=== PATIENT | female | born 1965 | race Caucasian/White ===

== ENCOUNTER 2020-04-29 05:51 | Day surgery (SDC) | payer MEDICAID ==
[2020-04-22 16:38] LABS: ALBUMIN 3.6 G/DL (3.4-5.0); ALBUMIN/GLOBULIN RATIO 0.9 (1.1-1.5); ALKALINE PHOSPHATASE 89 IU/L (46-116); BLOOD UREA NITROGEN 17 MG/DL (7-18); BUN/CREATININE RATIO 13.8 (6.6-38.0); CHLORIDE 102 MMOL/L (99-107); CREATININE 1.23 MG/DL (0.40-0.90); PRE OP ALT 41 U/L (30-65); PRE OP ANION GAP 12 (8-16); PRE OP AST 33 U/L (10-37); PRE OP BILIRUB, TOTAL 0.2 MG/DL (0.0-1.0); PRE OP GLUCOSE 115 MG/DL (70-104); PRE OP POTASSIUM 3.4 MMOL/L (3.4-5.1); PRE OP SODIUM 139 MMOL/L (135-145); TOTAL CARBON DIOXIDE 24.9 MMOL/L (24-32); TOTAL PROTEIN 7.6 G/DL (6.4-8.2); eGFR 46 ML/MIN
[2020-04-22 16:48] LABS: BASOPHILS # (AUTO) 0.2 X10'3 (0-0.2); BASOPHILS % (AUTO) 1.4 % (0-1); EOSINOPHILS # (AUTO) 0.2 X10'3 (0-0.9); EOSINOPHILS % (AUTO) 1.7 % (0-6); LYMPHOCYTES # (AUTO) 3.4 X10'3 (1.1-4.8); LYMPHOCYTES % (AUTO) 31.2 % (21-51); MEAN CORPUSCULAR HEMOGLOBIN 28.7 PG (27.0-31.0); MEAN CORPUSCULAR HGB CONC 33.7 g/dL (33.0-36.5); MEAN CORPUSCULAR VOLUME 85.3 FL (78-98); MEAN PLATELET VOLUME 8.3 FL (7.4-10.4); MONOCYTES # (AUTO) 0.5 X10'3 (0-0.9); MONOCYTES % (AUTO) 4.9 % (2-12); NEUTROPHILS # (AUTO) 6.6 X10'3 (1.8-7.7); NEUTROPHILS % (AUTO) 60.8 % (42-75); PRE OP HEMATOCRIT 39.3 % (35.0-45.0); PRE OP HEMOGLOBIN 13.2 g/dL (12.0-16.0); PRE OP PLATELET COUNT 331 X10'3 (140-440); RED CELL DISTRIBUTION WIDTH 15.1 % (11.5-14.5)
[~2020-04-29] VITALS: Ht 157.5 cm; Wt 113.4 kg
[~2020-04-29 05:51] MED LIST: BREX2TAB PO; BUSP15TA3 PO; CITA40TA16 PO; CLON-330 PO; CYCL-1 PO; DEXT20CA4 PO; DIPH25CA83 PO; ENAL20TA PO; FAMO20TA8 PO; FLUT16SP2 BOTHNARES; HYDR-3927 PO; HYDR-3973 PO; HYDR25TA4 PO; LEVO112T5 PO; METF-900 PO; SIMV-42 PO; ZOLP10TA PO; ceFAZolin 2gm in dextrose, iso 50 ML IV ONE; famotidine 20mg tablet PO ONE; ringers solution, lacted 1,000 ML IV SCH
[2020-04-29 06:05] VITALS: BP 103/57
[2020-04-29] MEDS ORDERED: LIDOcaine 1% 30ml preserv. free vial ONE (07:22)
[2020-04-29] MEDS ORDERED: meperidine/PF 25mg/ml syringe IV PRN ×3 (07:55)
[2020-04-29] MEDS ORDERED: morphine 2 MG/ML inj. syringe IV PRN (07:55)
[2020-04-29] MEDS ORDERED: ondansetron/PF 4mg/2ml inj IV PRN (07:55)
[2020-04-29] MEDS ORDERED: ringers solution, lacted 1,000 ML IV SCH (07:55)
[2020-04-29] MEDS ORDERED: proCHLORperazine 10 MG/2 ml inj IV PRN (07:55)
[2020-04-29] MEDS ORDERED: morphine 4 MG/ML inj SYRINge IV PRN (07:55)
[2020-04-29] MEDS ORDERED: BUPIVAcaine/PF 2.5mg/ml (0.25%) 10ml vial ONE (08:10)
[2020-04-29] MEDS ORDERED: MIDAZolam 5mg/5ml vial ONE (08:42)
[2020-04-29] MEDS ORDERED: fentaNYL/PF 50MCG/1 ML 2ML syringe ONE (08:42)
[2020-04-29] MEDS ORDERED: ketorolac trometh. 30mg/ml inj. ONE (08:56)
[2020-04-29 09:04] VITALS: BP 124/70
--- NOTE | 2020-04-29 09:04 | NUR ---
RECEIVED FROM OR VIA [facility] ACCOMPANIED BY ANESTHESIOLOGIST DR SCHWARTZ, REPORT GIVEN. PT DROWSY BUT AWAKENS EASILY AND DENIES PAIN AT THIS TIME. R WRIST DRESSING CDI WITH GOOD CAP REFILL, SKIN PINK AND WARM. 20 GAUGE PIV L A/C PATENT AND RUNNING LR AT 100 ML/HR.RUE ELEVATED AND ICE APPLIED, RESTING COMFORTABLY.
[2020-04-29 09:10] VITALS: BP 120/72
[2020-04-29 09:20] VITALS: BP 114/70
[2020-04-29 09:30] VITALS: BP 118/70
[2020-04-29 09:40] VITALS: BP 122/72
--- NOTE | 2020-04-29 09:44 | NUR ---
TRANSFERRED VIA WHEELCHAIR ACCOMPANIED BY MY SELF TO MOTHER IN PRIVATE VEHICLE TO HOME.. PT AWAKE AND ALERT, TOLERATING FLUIDS, DRESSES SELF, AMBULATES, DISCHARGE INSTRUCTIONS GIVENAND PT VERBALIZES UNDERSTANDING.. R WRIST DRESSING CDI WITH GOOD CAP REFILL, SKIN PINK AND WARM. 20 GAUGE PIV L A/C DC/D CATH TIP INTACT.
== END 2020-04-29 09:44 | disposition home or self-care (01) ==
LOC: PAS 05:51
PROVIDERS: ATTEND Orthopaedic Surgery Hand Surgery
DX: G56.01 Carpal tunnel syndrome, right upper limb (principal); M17.0 Bilateral primary osteoarthritis of knee; E11.9 Type 2 diabetes mellitus without complications; E78.00 Pure hypercholesterolemia, unspecified; I11.9 Hypertensive heart disease without heart failure; E03.9 Hypothyroidism, unspecified; M18.0 Bilateral primary osteoarthritis of first carpometacarpal joints; J43.9 Emphysema, unspecified; K21.9 Gastro-esophageal reflux disease without esophagitis; F17.210 Nicotine dependence, cigarettes, uncomplicated; E66.01 Morbid (severe) obesity due to excess calories; Z68.41 Body mass index [BMI] 40.0-44.9, adult; Z79.899 Other long term (current) drug therapy; Z11.59 Encounter for screening for other viral diseases; Z88.5 Allergy status to narcotic agent; Z79.84 Long term (current) use of oral hypoglycemic drugs; Z98.890 Other specified postprocedural states; Z90.49 Acquired absence of other specified parts of digestive tract; Z86.73 Personal history of transient ischemic attack (TIA), and cerebral infarction without residual deficits
CPT/HCPCS: 29848; 36415; 80053; 82948; 85025; 93005; J1885; J2001; J2250; J3010; J3490; U0003; A4215; A7000; J7120

== ENCOUNTER 2020-09-13 09:20 | Day surgery (SDC) | payer MEDICAID ==
[2020-09-06 15:03] LABS: BASOPHILS # (AUTO) 0.2 X10'3 (0-0.2); EOSINOPHILS # (AUTO) 0.2 X10'3 (0-0.9); MONOCYTES # (AUTO) 0.7 X10'3 (0-0.9); PRE OP HEMOGLOBIN 14.8 g/dL (12.0-16.0); PRE OP PLATELET COUNT 302 X10'3 (140-440)
[2020-09-06 15:05] LABS: BASOPHILS % (AUTO) 1.1 % (0-1); EOSINOPHILS % (AUTO) 1.6 % (0-6); LYMPHOCYTES # (AUTO) 3.5 X10'3 (1.1-4.8); LYMPHOCYTES % (AUTO) 25.5 % (21-51); MEAN CORPUSCULAR HEMOGLOBIN 29.1 PG (27.0-31.0); MEAN CORPUSCULAR HGB CONC 34.5 g/dL (33.0-36.5); MEAN CORPUSCULAR VOLUME 84.4 FL (78-98); MEAN PLATELET VOLUME 8.5 FL (7.4-10.4); MONOCYTES % (AUTO) 5.4 % (2-12); NEUTROPHILS % (AUTO) 66.4 % (42-75); RED CELL DISTRIBUTION WIDTH 14.7 % (11.5-14.5)
[2020-09-06 15:23] LABS: ALBUMIN 4.2 G/DL (3.4-5.0); ALBUMIN/GLOBULIN RATIO 1.1 (1.1-1.5); ALKALINE PHOSPHATASE 105 IU/L (46-116); BLOOD UREA NITROGEN 16 MG/DL (7-18); CALCIUM 9.2 MG/DL (8.5-10.1); CHLORIDE 97 MMOL/L (99-107); CREATININE 1.07 MG/DL (0.40-0.90); PRE OP ALT 40 U/L (30-65); PRE OP ANION GAP 13 (8-16); PRE OP AST 28 U/L (10-37); PRE OP BILIRUB, TOTAL 0.3 MG/DL (0.0-1.0); PRE OP GLUCOSE 90 MG/DL (70-104); PRE OP SODIUM 137 MMOL/L (135-145); TOTAL PROTEIN 8.2 G/DL (6.4-8.2); eGFR 53 ML/MIN
[2020-09-06 15:25] LABS: PRE OP POTASSIUM 3.8 MMOL/L (3.4-5.1)
[2020-09-13] VITALS (8 sets, daily range): BP systolic 119–168; BP diastolic 70–103
[~2020-09-13] VITALS: Ht 160 cm; Wt 122.3 kg
[~2020-09-13 09:20] MED LIST changes: +ASPI-1264 PO; +BUPIVAcaine/PF 2.5mg/ml (0.25%) 10ml vial ONE; -DEXT20CA4 PO; -DIPH25CA83 PO; +ENAL-79 PO; -ENAL20TA PO; -FLUT16SP2 BOTHNARES; -HYDR-3973 PO; +LIDOcaine 0.5% (5mg/ml) 50ml vial ONE; -ceFAZolin 2gm in dextrose, iso 50 ML IV ONE; +ceFAZolin inj. 3,000 MG in normal saline 100ml IV soln 100 ML IV ONE
[2020-09-13] MEDS ORDERED: LIDOcaine 0.5% (5mg/ml) 50ml vial ONE (09:39)
[2020-09-13] MEDS ORDERED: morphine 2 MG/ML inj. syringe IV PRN (10:10)
[2020-09-13] MEDS ORDERED: hydrALAZINE 20mg/ml inj. IV PRN (10:10)
[2020-09-13] MEDS ORDERED: fentaNYL/PF 50MCG/1 ML 2ML syringe IV PRN ×2 (10:10)
[2020-09-13] MEDS ORDERED: ondansetron/PF 4mg/2ml inj IV PRN (10:10)
[2020-09-13] MEDS ORDERED: ringers solution, lacted 1,000 ML IV SCH (10:10)
[2020-09-13] MEDS ORDERED: labetalol 20mg/4ml (5mg/ml) syringe IV PRN (10:10)
[2020-09-13] MEDS ORDERED: morphine 4 MG/ML inj SYRINge IV PRN (10:10)
[2020-09-13] MEDS ORDERED: dexamethasone sod phosphate 10mg/ml inj ONE (10:43)
[2020-09-13] MEDS ORDERED: sevoflurane 250ml liquid IH ONE (10:43)
[2020-09-13] MEDS ORDERED: fentaNYL/PF 50MCG/1 ML 2ML syringe ONE (11:17)
[2020-09-13] MEDS ORDERED: MIDAZolam 5mg/5ml vial ONE (11:17)
[2020-09-13] MEDS ORDERED: propofol inj 20 ML IV ONE (11:18)
[2020-09-13] MEDS ORDERED: LIDOcaine 2% (20mg/ml) 5ml vial ONE (11:18)
[2020-09-13] MEDS ORDERED: ondansetron/PF 4mg/2ml inj ONE (11:24)
[2020-09-13] MEDS ORDERED: labetalol 20mg/4ml (5mg/ml) syringe IV ONE (11:38)
--- NOTE | 2020-09-13 11:57 | NUR ---
ARRIVED IN PACU VIA GURNEY FROM OR WITH DR Billings IN ATTENDANCE. REPORT RECIEVED. VS STABLE. NO C/O PAIN
--- NOTE | 2020-09-13 12:27 | NUR ---
PT C/0 PAIN, NEEDING PAIN MEDS. BP AND PAIN RX GIVEN
--- NOTE | 2020-09-13 13:00 | NUR ---
PT UP TO BR. STEADY ON FEET. VOIDED QS
--- NOTE | 2020-09-13 13:10 | NUR ---
VS STABLE OFF O2 AFTER BEING UP TO THE BR. PT FEELS PAIN IS TOLERABLE, AND WILL GO HOME AND TAKE HER PAIN MED
--- NOTE | 2020-09-13 13:17 | NUR ---
TO CAR VIA W/C, ASSISTED BY NURSE WITHOUT INCIDENT
== END 2020-09-13 13:17 | disposition home or self-care (01) ==
LOC: PAS 09:20
PROVIDERS: ATTEND Orthopaedic Surgery Hand Surgery
DX: G56.02 Carpal tunnel syndrome, left upper limb (principal); F17.210 Nicotine dependence, cigarettes, uncomplicated; J44.9 Chronic obstructive pulmonary disease, unspecified; F41.9 Anxiety disorder, unspecified; F32.9 Major depressive disorder, single episode, unspecified; K21.9 Gastro-esophageal reflux disease without esophagitis; M17.0 Bilateral primary osteoarthritis of knee; E11.9 Type 2 diabetes mellitus without complications; E66.01 Morbid (severe) obesity due to excess calories; Z68.41 Body mass index [BMI] 40.0-44.9, adult; F15.90 Other stimulant use, unspecified, uncomplicated; F43.10 Post-traumatic stress disorder, unspecified; Z86.73 Personal history of transient ischemic attack (TIA), and cerebral infarction without residual deficits; Z88.5 Allergy status to narcotic agent; Z79.899 Other long term (current) drug therapy; Z20.828 Contact with and (suspected) exposure to other viral communicable diseases; Z90.710 Acquired absence of both cervix and uterus; Z90.49 Acquired absence of other specified parts of digestive tract; Z98.890 Other specified postprocedural states
CPT/HCPCS: 36415; 64721; 80053; 82948; 85025; 87635; A6222; J0690; J1100; J2001; J2250; J2405; J2704; J3010; J3490; A4215; A4618; A6449; J7120

== ENCOUNTER 2023-02-10 13:20 | Emergency (ER) | payer MEDICAID ==
[~2023-02-10] VITALS: Ht 157.5 cm; Wt 130.0 kg
[~2023-02-10 13:20] MED LIST changes: -BUPIVAcaine/PF 2.5mg/ml (0.25%) 10ml vial ONE; -LIDOcaine 0.5% (5mg/ml) 50ml vial ONE; -ceFAZolin inj. 3,000 MG in normal saline 100ml IV soln 100 ML IV ONE; -famotidine 20mg tablet PO ONE; -ringers solution, lacted 1,000 ML IV SCH
[2023-02-10] MEDS ORDERED: LIDOcaine 5% patch TP STA (14:47)
[2023-02-10] MEDS ORDERED: ketorolac trometh inj. 60 MG/2 ML VIAL IM ONE (14:50)
[2023-02-10] MEDS ORDERED: acetaminophen 325mg tablet PO ONE (14:50)
[2023-02-10] MEDS ORDERED: LORazepam 1 MG tablet PO ONE (16:40)
[2023-02-10 16:43] LABS: BASOPHILS # (AUTO) 0.1 X10'3 (0-0.2); BASOPHILS % (AUTO) 1.1 % (0-1); EOSINOPHILS # (AUTO) 0.1 X10'3 (0-0.9); EOSINOPHILS % (AUTO) 1.2 % (0-6); HEMATOCRIT 39.6 % (35.0-45.0); HEMOGLOBIN 12.9 g/dl (12.0-16.0); LYMPHOCYTES # (AUTO) 2.9 X10'3 (1.1-4.8); LYMPHOCYTES % (AUTO) 24.5 % (21-51); MEAN CORPUSCULAR HEMOGLOBIN 26.8 PG (27.0-31.0); MEAN CORPUSCULAR HGB CONC 32.5 g/dL (33.0-36.5); MEAN CORPUSCULAR VOLUME 82.5 FL (78-98); MEAN PLATELET VOLUME 8.6 FL (7.4-10.4); MONOCYTES % (AUTO) 8.3 % (2-12); NEUTROPHILS # (AUTO) 7.8 X10'3 (1.8-7.7); NEUTROPHILS % (AUTO) 64.9 % (42-75); PLATELET COUNT 408 X10'3 (140-440); RED CELL DISTRIBUTION WIDTH 14.7 % (11.5-14.5)
--- NOTE | 2023-02-10 16:45 | NUR ---
PER ED CHARGE NURSE LANI, DR. CAMERON JUST RECENTLY ENTERED PT ROOM TO DISCUSS 1799 HOLD; THIS WAS AFTER HAVING A DISCUSSION WITH PT [id number] WHO IS CONCERNED FOR PT SAFETY TO HERSELF AND OTHERS; LANI STATES PT IMMEDIATELY RAN OUTSIDE WITH CIGARETTES, LEAVING ALL OTHER PERSONAL BELONGINGS BEHIND IN ED RM; SISTER IN LAW ACCOMPAINED PT OUTSIDE; SECURITY NOTIFED OF PT ELOPEMENT; ALL ROOM EQUIPMENT REMOVED FROM PT ROOM AT THIS TIME, PER PROTOCOL, AND SECURITY ESCORTS PT BACK TO ROOM; ALL PT PERSONAL BELONGINGS GIVEN TO SISTER IN LAW, INCLUDING: CLOTHING, HAIR BRUSH, PHONE, TABLET, WALLET, CIGARETTES, AND WALKER; PT DRESSED IN GREEN SCRUB PANTS AND PT GOWN, DUE TO GREEN SCRUB TOP NOT FITTING; PT REPEATEDLY REQUESTING CHAIR, STATING SHE CANNOT SIT IN STRETCHER DUE TO LEFT LEG AND BACK "SCIATICA AND FIBROMYALGIA PAIN;" PT GIVEN ORDERED MEDICATION WITHOUT COMPLICATION AND PROVIDED WITH RECLINER FOR INCREASED COMFORT AND STATES SHE FEELS BETTER WITH THIS ARRANGMENT; SISTER IN LAW REMAINS AT BEDSIDE AND PT IS CURRENTLY CALM AND COOPERATIVE
[2023-02-10 16:49] LABS: ACETAMINOPHEN 4.7 UG/ML (10-30); ALANINE AMINOTRANSFERASE 83 U/L (12-78); ALKALINE PHOSPHATASE 120 IU/L (46-116); ANION GAP 7 (8-16); ASPARTATE AMINO TRANSFERASE 59 U/L (10-37); BILIRUBIN,TOTAL 0.4 MG/DL (0.1-1.0); BLOOD UREA NITROGEN 17 MG/DL (7-18); BUN/CREATININE RATIO 14.9 (10.0-20.0); CHLORIDE 98 MMOL/L (99-107); CREATININE 1.14 MG/DL (0.40-0.90); GLUCOSE 145 MG/DL (70-104); POTASSIUM 3.2 MMOL/L (3.5-5.1); SODIUM 137 MMOL/L (135-145); eGFR 49 ML/MIN
[2023-02-10 17:24] LABS: ETHANOL < 0.010 GM/DL (0.0-0.010)
[2023-02-10] MEDS ORDERED: HYDROcodone/acetaminophen 5mg/325mg tablet PO ONE ×2 (17:35)
[2023-02-10 17:50] LABS: CLARITY,URINE SLIGHTLY CLOUDY (Clear); COLOR,URINE YELLOW (Yellow); GLUCOSE, URINE NEGATIVE (Neg); KETONES,URINE NEGATIVE (Neg); LEUKOCYTE ESTERASE ,URINE TRACE (Neg); NITRITES, URINE NEGATIVE (Neg); OCCULT BLOOD,URINE NEGATIVE (Neg); PROTEIN,URINE 100 mg/dl (Neg); UROBILINOGEN,URINE 0.2 E.U/dL (0.2-1.0)
[2023-02-10 17:51] LABS: UA COLLECTION TYPE CLN CATCH MIDSTREAM
[2023-02-10 17:54] LABS: URINE HCG NEGATIVE (NEG)
[2023-02-10 18:03] LABS: BACTERIA,URINE 2+ /HPF (Neg); RBC,URINE 0-2 /HPF (0-2); SQUAMOUS EPITHELIAL CELL,UR MODERATE /LPF (FEW)
[2023-02-10 18:04] LABS: MUCUS STRANDS FEW /LPF (Neg); URINE AMPHETAMINE SCREEN POSITIVE (Neg); URINE BARBITUATE SCREEN NEGATIVE (Neg); URINE BENZODIAZEPINES SCREEN POSITIVE (Neg); URINE CANNABINOID SCREEN NEGATIVE (Neg); URINE COCAINE SCREEN NEGATIVE (Neg); URINE METHADONE SCREEN NEGATIVE (Neg); URINE OPIATE SCREEN POSITIVE (Neg); URINE PHENCYCLIDINE SCREEN NEGATIVE (Neg); WBC CLUMPS,URINE FEW /HPF (NEGATIVE)
[2023-02-10 18:05] LABS: CELLULAR CAST 0-4 /LPF (NEGATIVE)
[2023-02-10] MEDS ORDERED: POTASSIUM BICARB 20meq eff tab 20 MEQ TABLET.EFF PO ONE (18:20)
--- NOTE | 2023-02-10 18:41 | NUR ---
SPOKE WITH PHARMACIST AT THIS TIME WHO STATES ORDERED POTASSIUM BICARB IS UNAVAILABLE AT THIS TIME, BUT ONCE A INTERNET SALES MANAGER RETURNS TO PHARMACY SHE WILL HAVE THEM COME TO ED AND REFILL OMNICELL
[2023-02-10] MEDS ORDERED: haloperidol lactate 5mg/ml inj IM STA (18:49)
[2023-02-10] MEDS ORDERED: LORazepam 2 mg/ml vial IM STA (18:49)
--- NOTE | 2023-02-10 18:50 | NUR ---
PT CAME OUT OF HER ROOM AND SAID SHE WAS LEAVING. INSTRUCTED HER SHE IS ON A HEALTH HOLD AND IS NOT ALLOWED TO LEAVE. SHE WALKED OUT TO REGISTRATION, STOOD IN FRONT OF DOOR SO SHE COULD NOT EXIT. SECURITY CAME THROUGH DOOR, ESCORTED HER BACK TO HER ROOM. MD CAMERON AWARE AND SAW THIS. ORDERED MEDS PER VERBAL ORDER.
--- NOTE | 2023-02-10 19:00 | NUR ---
PT TEARFUL AND AGITATED IN ROOM THREATENING TO LEAVE ED; KEEPS STATING SHE DOESN'T UNDERSTAND WHY HER MOTHER DOESN'T LOVE HER; MEDICATIONS ADMINSTERED ORDERED
[2023-02-10] MEDS ORDERED: LORazepam 2 mg/ml vial IM ONE (19:30)
[2023-02-10] MEDS ORDERED: haloperidol lactate 5mg/ml inj IM ONE (19:30)
--- NOTE | 2023-02-10 20:00 | NUR ---
SHE IS IN HER ROOM SAYING "I WANT MY SHOES, I AM NOT STAYING HERE ANYMORE. I WANT TO GO."
--- NOTE | 2023-02-10 20:10 | NUR ---
PT ASSISTED WITH CALLING HER GRANDDAUGHTER VIA ED PHONE IN PT RM PER PT REQUEST AND RN SUPERVISION; PT CALM AND COOPERATIVE AT THIS TIME; PHONE REMOVED FROM ROOM AFTER COMPLETION OF CALL
--- NOTE | 2023-02-10 20:20 | NUR ---
PT PROVIDED WITH CRAYONS AND COLORING PAGES PER PT REQUEST; PT CALM AND COOPERATIVE; NO FURTHER REQUESTS AT THIS TIME
--- NOTE | 2023-02-10 21:01 | NUR ---
Received pt from [facility] Braulio gave report. Pt placed in assigned bed #26. Pt denies SI/HI/AVH.
--- NOTE | 2023-02-10 22:56 | NUR ---
Pt resting in assigned bed with eyes closed in NAD, RR even and unlabored.
--- NOTE | 2023-02-11 02:25 | NUR ---
Pt resting in supine position with eyes closed, RR even and unlabored.
--- NOTE | 2023-02-11 05:19 | NUR ---
Pt asleep in assigned bed. RR even and unlabored. Pt in NAD.
--- NOTE | 2023-02-11 06:57 | NUR ---
tech sent pt packet
--- NOTE | 2023-02-11 08:30 | NUR ---
Pt. awoke and ate about 25% of her breakfast then went back to sleep.
--- NOTE | 2023-02-11 10:30 | NUR ---
Pt. awoke and used toilet then went back to sleep.
[2023-02-11] MEDS ORDERED: METF-900 PO (10:42)
[2023-02-11 12:33] VITALS: BP 153/83
== END 2023-02-11 12:00 | disposition still patient (30) ==
LOC: ER 13:20
DX: M79.605 Pain in left leg (principal); Z20.822 Contact with and (suspected) exposure to COVID-19; G89.29 Other chronic pain; E87.6 Hypokalemia; I10 Essential (primary) hypertension; F12.10 Cannabis abuse, uncomplicated; F15.10 Other stimulant abuse, uncomplicated; Z56.0 Unemployment, unspecified; Z88.5 Allergy status to narcotic agent; Z79.899 Other long term (current) drug therapy; Z79.82 Long term (current) use of aspirin
CPT/HCPCS: 36415; 80053; 80305; 80320; 80329; 81001; 81025; 85025; 87811; 96372; 99285; J1630; J1885; J2060

== ENCOUNTER 2023-02-23 10:05 | Emergency (ER) | payer MEDICAID ==
[~2023-02-23] VITALS: Ht 167.6 cm; Wt 150.4 kg
[2023-02-23 10:05] VITALS: BP 203/124
[~2023-02-23 10:05] MED LIST changes: -BUSP15TA3 PO; -HYDR-3927 PO
[2023-02-23] MEDS ORDERED: IBUP-1986 PO (10:50)
[2023-02-23] MEDS ORDERED: LORazepam 1 MG tablet PO ONE (10:50)
[2023-02-23] MEDS ORDERED: ketorolac trometh inj. 60 MG/2 ML VIAL IM ONE (10:50)
== END 2023-02-23 11:03 | disposition home or self-care (01) ==
LOC: ER 10:05
DX: M25.552 Pain in left hip (principal); F41.9 Anxiety disorder, unspecified; G89.29 Other chronic pain; I10 Essential (primary) hypertension; F32.9 Major depressive disorder, single episode, unspecified; F12.90 Cannabis use, unspecified, uncomplicated; F15.90 Other stimulant use, unspecified, uncomplicated; Z90.49 Acquired absence of other specified parts of digestive tract; Z90.710 Acquired absence of both cervix and uterus; Z90.89 Acquired absence of other organs; Z56.0 Unemployment, unspecified; Z86.73 Personal history of transient ischemic attack (TIA), and cerebral infarction without residual deficits
CPT/HCPCS: 96372; 99283; J1885

== ENCOUNTER 2023-02-24 14:30 | Emergency (ER) | payer MEDICAID ==
[~2023-02-24 14:30] MED LIST changes: +IBUP-1986 PO
== END 2023-02-24 18:29 | disposition left against medical advice (07) ==
LOC: ER 14:31
DX: Z00.8 Encounter for other general examination (principal); Z53.21 Procedure and treatment not carried out due to patient leaving prior to being seen by health care provider

== ENCOUNTER 2023-04-15 23:27 | Emergency (ER) | payer MEDICAID ==
[~2023-04-15] VITALS: Ht 160 cm; Wt 119.5 kg
[2023-04-15 23:29] VITALS: BP 148/80
[2023-04-15] MEDS ORDERED: diphenoxylate/atropine tablet (Lomotil) PO ONE (23:45)
--- NOTE | 2023-04-16 00:17 | NUR ---
lab not able to draw her blood and informed me.
--- NOTE | 2023-04-16 04:00 | NUR ---
this pt is an eloped pt
[2023-04-16] MEDS ORDERED: BREX3TAB PO (16:27)
[2023-04-16] MEDS ORDERED: ASPI81TA52 PO (16:27)
[2023-04-16] MEDS ORDERED: FAMO20TA8 PO (21:39)
== END 2023-04-16 03:10 | disposition left against medical advice (07) ==
LOC: ER 23:28
DX: R19.7 Diarrhea, unspecified (principal); Z53.21 Procedure and treatment not carried out due to patient leaving prior to being seen by health care provider
CPT/HCPCS: 99281

== ENCOUNTER 2023-04-16 09:54 | Inpatient (IN) | payer MEDICAID ==
[~2023-04-16] VITALS: Ht 158.8 cm; Wt 128.4 kg
[2023-04-16 11:33] LABS: BASOPHILS # (AUTO) 0.1 X10'3 (0-0.2); BASOPHILS % (AUTO) 0.6 % (0-1); EOSINOPHILS % (AUTO) 0.1 % (0-6); HEMATOCRIT 36.1 % (35.0-45.0); LYMPHOCYTES # (AUTO) 2.4 X10'3 (1.1-4.8); LYMPHOCYTES % (AUTO) 10.9 % (21-51); MEAN CORPUSCULAR HEMOGLOBIN 27.3 PG (27.0-31.0); MEAN CORPUSCULAR HGB CONC 33.3 g/dL (33.0-36.5); MEAN PLATELET VOLUME 8.9 FL (7.4-10.4); MONOCYTES # (AUTO) 1.9 X10'3 (0-0.9); MONOCYTES % (AUTO) 8.5 % (2-12); NEUTROPHILS # (AUTO) 17.8 X10'3 (1.8-7.7); NEUTROPHILS % (AUTO) 79.9 % (42-75); PLATELET COUNT 368 X10'3 (140-440); RED BLOOD COUNT 4.41 X10'6 (4.20-5.60); RED CELL DISTRIBUTION WIDTH 15.1 % (11.5-14.5); WHITE BLOOD COUNT 22.3 X10'3 (4.5-11.0)
[2023-04-16 11:38] LABS: ALANINE AMINOTRANSFERASE 49 U/L (12-78); ALBUMIN 3.8 G/DL (3.4-5.0); ALBUMIN/GLOBULIN RATIO 0.9 (1.1-1.5); ALKALINE PHOSPHATASE 104 IU/L (46-116); ANION GAP 21 (8-16); ASPARTATE AMINO TRANSFERASE 53 U/L (10-37); BILIRUBIN,TOTAL 0.4 MG/DL (0.1-1.0); BLOOD UREA NITROGEN 49 MG/DL (7-18); BUN/CREATININE RATIO 9.1 (10.0-20.0); CHLORIDE 94 MMOL/L (99-107); CREATININE 5.41 MG/DL (0.40-0.90); GLUCOSE 115 MG/DL (70-104); POTASSIUM 3.5 MMOL/L (3.5-5.1); SODIUM 137 MMOL/L (135-145); TOTAL CARBON DIOXIDE 21.8 MMOL/L (24-32); TOTAL PROTEIN 7.9 G/DL (6.4-8.2); eGFR 8 ML/MIN
[2023-04-16 11:51] LABS: CALCIUM 8.7 MG/DL (8.5-10.1)
[2023-04-16] MEDS ORDERED: LORazepam 1 MG tablet PO ONE (12:00)
[2023-04-16] MEDS ORDERED: ondansetron/PF 4mg/2ml inj IV ONE (12:45)
[2023-04-16] MEDS ORDERED: normal saline 1000ML IV soln IVB ONE ×2 (12:45→14:30)
[2023-04-16] MEDS ORDERED: morphine 4 MG/ML inj SYRINge IV ONE (12:45)
[2023-04-16 13:25] LABS: MAGNESIUM 0.9 MG/DL (1.5-2.4)
[2023-04-16] MEDS ORDERED: magnesium 2GM in 50ml NS 50 ML IV ONE (13:40)
--- NOTE | 2023-04-16 13:50 | NUR ---
COFFEE MACHINE TECHNICIAN NURSE NOTIFIED OF IV MEDICATIONS.
[2023-04-16 14:39] LABS: C DIFF SPECIMEN=DIARRHEA? ACCEPTABLE; C DIFFICILE TOXINS A&B NEGATIVE (Neg)
[2023-04-16] MEDS ORDERED: metroNIDAZOLE-Flagyl 500mg/NS 100 ML IV STA (14:48)
[2023-04-16] MEDS ORDERED: acetaminophen 325mg tablet PO PRN ×2 (15:20)
[2023-04-16] MEDS ORDERED: metoclopramide 5 mg/ml inj IV PRN (15:20)
[2023-04-16] MEDS ORDERED: magnesium Cl slow-release 64mg tablet PO PRN (15:20)
[2023-04-16] MEDS ORDERED: potassium Cl 20 mEq SR tablet PO PRN ×2 (15:20)
[2023-04-16] MEDS ORDERED: magnesium hydroxide 30ml (MOM) UD suspension PO PRN (15:20)
[2023-04-16] MEDS ORDERED: acetaminophen 650mg rectal suppository RC PRN (15:20)
[2023-04-16] MEDS ORDERED: HYDROmorphone inj. 0.5 MG/0.5 ML DISP.SYRIN IV PRN (15:20)
[2023-04-16] MEDS ORDERED: HYDROmorphone/PF 0.2 MG/ML SYRINGE IV PRN (15:20)
[2023-04-16] MEDS ORDERED: potassium Cl 40MEQ/1/2NS 520ml 520 ML IV PRN (15:20)
[2023-04-16] MEDS ORDERED: mag hydrox/Alum hydrox/simeth 30ml oral suspension PO PRN (15:20)
[2023-04-16] MEDS ORDERED: magnesium 4gm in 100ml NS 100 ML IV PRN (15:20)
[2023-04-16] MEDS ORDERED: ondansetron/PF 4mg/2ml inj IV PRN (15:20)
[2023-04-16] MEDS ORDERED: magnesium 2GM in 50ml NS 50 ML IV PRN (15:20)
[2023-04-16] MEDS ORDERED: ondansetron 4mg rapidly disintigrating tab PO PRN (15:20)
--- NOTE | 2023-04-16 15:35 | NUR ---
CHARGE NURSE KOMAL CRISOSTOMO NOTIFIED OF ADMISSION AND IV MEDICATIONS DUE.
--- NOTE | 2023-04-16 16:01 | NUR ---
ATTEMPTED TO CALL REPORT TO PCU.
--- NOTE | 2023-04-16 16:23 | NUR ---
REPORT CALLED TO NICHOLAS CRISOSTOMO
[2023-04-16] MEDS ORDERED: BREX3TAB PO (16:27)
[2023-04-16] MEDS ORDERED: ASPI81TA52 PO (16:27)
[2023-04-16 17:15] VITALS: BP 96/46
[2023-04-16] MEDS: normal saline 1000ml 1,000 ML IV SCH ×2 (17:15→20:15)
[2023-04-16] MEDS: ciprofloxacin lact 400MG/200ML 200 ML IV SCH (17:15)
[2023-04-16] MEDS: ringers solution, lacted 1,000 ML IV SCH (17:21)
[2023-04-16 18:00] VITALS: BP 96/46
[2023-04-16] MEDS: temazepam 15mg capsule PO PRN (19:56)
[2023-04-16] MEDS: HYDROcodone/acetaminophen 5mg/325mg tablet PO PRN (19:57)
[2023-04-16] MEDS: metroNIDAZOLE-Flagyl 500mg/NS 100 ML IV SCH (19:57)
[2023-04-16] MEDS ORDERED: heparin, porcine 5000 units/ml vial SQ SCH (20:00)
[2023-04-16] MEDS: K and/or MAG REPLACEMENT MC SCH (20:00)
[2023-04-16] MEDS: heparin, porcine 5000 units/ml vial SQ SCH (20:11)
--- NOTE | 2023-04-16 21:00 | NUR ---
SOCIAL WORK JOB TITLES documentation: I have reviewed and agree with all interventions, assessments performed and documented by Anna Arroyo LVN .
[2023-04-16] MEDS ORDERED: FAMO20TA8 PO (21:39)
[2023-04-16 23:00] VITALS: BP 110/52
[2023-04-17 02:00] VITALS: BP 112/60
[2023-04-17] MEDS ORDERED: LidoCAINE 2% Topical Jelly 11mL syringe TOP ONE (06:35)
[2023-04-17] MEDS: ringers solution, lacted 1,000 ML IV SCH ×4 (06:40→20:58)
--- NOTE | 2023-04-17 06:58 | NUR ---
Patient in room PCU 3014. I have received report from Anna RN and had the opportunity to ask questions and assume patient care.
[2023-04-17 07:00] VITALS: BP 95/45
[2023-04-17 07:18] LABS: BASOPHILS # (AUTO) 0.1 X10'3 (0-0.2); BASOPHILS % (AUTO) 0.9 % (0-1); EOSINOPHILS # (AUTO) 0.2 X10'3 (0-0.9); EOSINOPHILS % (AUTO) 1.2 % (0-6); HEMATOCRIT 32.1 % (35.0-45.0); HEMOGLOBIN 10.8 g/dl (12.0-16.0); LYMPHOCYTES # (AUTO) 2.3 X10'3 (1.1-4.8); LYMPHOCYTES % (AUTO) 15.6 % (21-51); MEAN CORPUSCULAR HEMOGLOBIN 27.8 PG (27.0-31.0); MEAN CORPUSCULAR HGB CONC 33.5 g/dL (33.0-36.5); MEAN CORPUSCULAR VOLUME 82.9 FL (78-98); MEAN PLATELET VOLUME 8.8 FL (7.4-10.4); MONOCYTES # (AUTO) 0.8 X10'3 (0-0.9); MONOCYTES % (AUTO) 5.4 % (2-12); NEUTROPHILS # (AUTO) 11.4 X10'3 (1.8-7.7); NEUTROPHILS % (AUTO) 76.9 % (42-75); PLATELET COUNT 282 X10'3 (140-440); RED BLOOD COUNT 3.87 X10'6 (4.20-5.60); RED CELL DISTRIBUTION WIDTH 14.9 % (11.5-14.5); WHITE BLOOD COUNT 14.8 X10'3 (4.5-11.0)
[2023-04-17] MEDS: HYDROcodone/acetaminophen 10/325mg tab PO PRN ×2 (07:28→19:58)
[2023-04-17 07:35] LABS: ALANINE AMINOTRANSFERASE 44 U/L (12-78); ALBUMIN/GLOBULIN RATIO 0.8 (1.1-1.5); ALKALINE PHOSPHATASE 105 IU/L (46-116); ANION GAP 19 (8-16); ASPARTATE AMINO TRANSFERASE 44 U/L (10-37); BILIRUBIN,TOTAL 0.4 MG/DL (0.1-1.0); BLOOD UREA NITROGEN 55 MG/DL (7-18); BUN/CREATININE RATIO 12.9 (10.0-20.0); CALCIUM 8.2 MG/DL (8.5-10.1); CHLORIDE 97 MMOL/L (99-107); CREATININE 4.26 MG/DL (0.40-0.90); GLUCOSE 121 MG/DL (70-104); MAGNESIUM 1.7 MG/DL (1.5-2.4); POTASSIUM 3.7 MMOL/L (3.5-5.1); SODIUM 137 MMOL/L (135-145); TOTAL CARBON DIOXIDE 20.7 MMOL/L (24-32); TOTAL PROTEIN 6.8 G/DL (6.4-8.2); eGFR 11 ML/MIN
[2023-04-17] MEDS: K and/or MAG REPLACEMENT MC SCH ×2 (08:00→20:00)
[2023-04-17] MEDS: ciprofloxacin lact 400MG/200ML 200 ML IV SCH ×2 (08:33→21:05)
[2023-04-17] MEDS: metroNIDAZOLE-Flagyl 500mg/NS 100 ML IV SCH ×2 (08:33→22:27)
[2023-04-17] MEDS: heparin, porcine 5000 units/ml vial SQ SCH ×2 (08:34→19:59)
[2023-04-17] MEDS ORDERED: NICOTINE POLACRILEX 4 MG LOZENGE BC PRN (10:20)
[2023-04-17] MEDS ORDERED: cyclobenzaprine 10mg tablet PO PRN (10:20)
[2023-04-17 11:00] VITALS: BP 94/50
[2023-04-17] MEDS ORDERED: NICOTINE POLACRILEX 2 MG LOZENGE BC PRN (11:22)
--- NOTE | 2023-04-17 11:33 | NUR ---
Per EMR pt with T2DM, well controlled with A1c 7.0%. Written DM education with RD contact information placed in patient's chart. Will remain available. Addendum: 04/17/23 at [address] Amended: Links added.
[2023-04-17 13:00] LABS: CLARITY,URINE SLIGHTLY CLOUDY (Clear); COLOR,URINE YELLOW (Yellow); GLUCOSE, URINE NEGATIVE (Neg); KETONES,URINE NEGATIVE (Neg); LEUKOCYTE ESTERASE ,URINE NEGATIVE (Neg); NITRITES, URINE NEGATIVE (Neg); OCCULT BLOOD,URINE TRACE-INTACT (Neg); PROTEIN,URINE NEGATIVE (Neg); UROBILINOGEN,URINE 0.2 E.U/dL (0.2-1.0)
[2023-04-17] MEDS: cloNIDine 0.1 mg tablet PO SCH ×2 (13:00→19:58)
[2023-04-17 13:07] LABS: UA COLLECTION TYPE OTHER
[2023-04-17 13:09] LABS: TOTAL PROTEIN,URINE RANDOM 40.5 MG/DL; URINE AMPHETAMINE SCREEN POSITIVE (Neg); URINE BARBITUATE SCREEN NEGATIVE (Neg); URINE BENZODIAZEPINES SCREEN NEGATIVE (Neg); URINE CANNABINOID SCREEN NEGATIVE (Neg); URINE COCAINE SCREEN NEGATIVE (Neg); URINE METHADONE SCREEN NEGATIVE (Neg); URINE OPIATE SCREEN POSITIVE (Neg); URINE PHENCYCLIDINE SCREEN NEGATIVE (Neg)
[2023-04-17 13:12] LABS: MUCUS STRANDS FEW /LPF (Neg); SQUAMOUS EPITHELIAL CELL,UR MODERATE /LPF (FEW)
[2023-04-17 13:15] LABS: BACTERIA,URINE FEW /HPF (Neg); RBC,URINE 0-2 /HPF (0-2)
[2023-04-17 13:39] LABS: UA EOSINOPHILS NO EOS /HPF
[2023-04-17 15:00] VITALS: BP 101/37
[2023-04-17 18:00] VITALS: BP 105/48
--- NOTE | 2023-04-17 18:27 | NUR ---
Problems reprioritized. Patient report given, questions answered & plan of care reviewed with Anna RN.
[2023-04-17] MEDS ORDERED: MESSAGE TO PHARMACY PO ONE (19:05)
[2023-04-17] MEDS ORDERED: dextrose 50%-water 50ml dispensing syringe IV PRN ×2 (19:05)
[2023-04-17] MEDS ORDERED: DEXTROSE 15 GM of carb/4 tabs (each vial/BOTTLE has 4 tablets) PO PRN ×2 (19:05)
[2023-04-17] MEDS ORDERED: insulin Lispro (HumaLOG) vial - multi-dose SQ SCH (19:05)
[2023-04-17] MEDS ORDERED: glucagon, human recombinant 1mg kit SUBCUT PRN (19:05)
[2023-04-17] MEDS: zolpidem 5mg tablet PO PRN (19:58)
[2023-04-17] MEDS: insulin glargine (Lantus) pen - multi-dose SQ SCH (20:59)
[2023-04-17 22:00] VITALS: BP 99/49
[2023-04-18] MEDS: HYDROcodone/acetaminophen 10/325mg tab PO PRN ×3 (01:39→20:38)
[2023-04-18] MEDS: ziprasidone IM 20mg inj **IM only IM PRN (01:40)
[2023-04-18 02:05] VITALS: BP 101/52
[2023-04-18] MEDS: ringers solution, lacted 1,000 ML IV SCH ×4 (02:40→22:58)
--- NOTE | 2023-04-18 03:25 | NUR ---
LVNdocumentation: I have reviewed and agree with assessment performed and documented by SUZANNE Reyes
[2023-04-18 04:38] LABS: BASOPHILS # (AUTO) 0.1 X10'3 (0-0.2); BASOPHILS % (AUTO) 0.5 % (0-1); EOSINOPHILS # (AUTO) 0.2 X10'3 (0-0.9); EOSINOPHILS % (AUTO) 2.2 % (0-6); HEMATOCRIT 30.5 % (35.0-45.0); LYMPHOCYTES # (AUTO) 1.7 X10'3 (1.1-4.8); LYMPHOCYTES % (AUTO) 17.8 % (21-51); MEAN CORPUSCULAR HEMOGLOBIN 27.4 PG (27.0-31.0); MEAN CORPUSCULAR HGB CONC 32.7 g/dL (33.0-36.5); MEAN CORPUSCULAR VOLUME 83.8 FL (78-98); MEAN PLATELET VOLUME 8.7 FL (7.4-10.4); MONOCYTES # (AUTO) 0.7 X10'3 (0-0.9); MONOCYTES % (AUTO) 7.1 % (2-12); NEUTROPHILS # (AUTO) 6.9 X10'3 (1.8-7.7); NEUTROPHILS % (AUTO) 72.4 % (42-75); PLATELET COUNT 230 X10'3 (140-440); RED BLOOD COUNT 3.65 X10'6 (4.20-5.60); WHITE BLOOD COUNT 9.5 X10'3 (4.5-11.0)
[2023-04-18 04:57] LABS: ALANINE AMINOTRANSFERASE 39 U/L (12-78); ALBUMIN 2.6 G/DL (3.4-5.0); ALBUMIN/GLOBULIN RATIO 0.7 (1.1-1.5); ALKALINE PHOSPHATASE 96 IU/L (46-116); ANION GAP 13 (8-16); ASPARTATE AMINO TRANSFERASE 33 U/L (10-37); BILIRUBIN,TOTAL 0.2 MG/DL (0.1-1.0); BLOOD UREA NITROGEN 44 MG/DL (7-18); BUN/CREATININE RATIO 22.3 (10.0-20.0); CALCIUM 8.5 MG/DL (8.5-10.1); CHLORIDE 104 MMOL/L (99-107); CREATININE 1.97 MG/DL (0.40-0.90); GLUCOSE 123 MG/DL (70-104); MAGNESIUM 1.6 MG/DL (1.5-2.4); POTASSIUM 3.7 MMOL/L (3.5-5.1); SODIUM 139 MMOL/L (135-145); TOTAL PROTEIN 6.3 G/DL (6.4-8.2); eGFR 26 ML/MIN
[2023-04-18] MEDS: HYDROcodone/acetaminophen 5mg/325mg tablet PO PRN (05:16)
--- NOTE | 2023-04-18 06:30 | NUR ---
Patient in room PCU 3014. I have received report from Anna RN and had the opportunity to ask questions and assume patient care.
--- NOTE | 2023-04-18 06:31 | NUR ---
Patient in room PCU 3014. I have received report from MORRIS CRISOSTOMO and had the opportunity to ask questions and assume patient care.
[2023-04-18 07:02] VITALS: BP 113/48
[2023-04-18] MEDS: ciprofloxacin lact 400MG/200ML 200 ML IV SCH (07:43)
[2023-04-18] MEDS: metroNIDAZOLE-Flagyl 500mg/NS 100 ML IV SCH (07:43)
[2023-04-18] MEDS: cloNIDine 0.1 mg tablet PO SCH ×3 (07:44→20:39)
[2023-04-18] MEDS: heparin, porcine 5000 units/ml vial SQ SCH ×2 (07:44→20:39)
[2023-04-18] MEDS: levoTHYROXINE 112mcg tablet PO SCH (07:45)
[2023-04-18] MEDS: citalopram 20mg tablet PO SCH (07:45)
[2023-04-18] MEDS: K and/or MAG REPLACEMENT MC SCH ×2 (08:00→20:00)
--- NOTE | 2023-04-18 11:25 | NUR ---
ESPINAL REMOVED AND PT. TOLERATED WELL, PT. HAD 900ML DRAINED. WILL CONT. TO MONITOR OUTPUT.
[2023-04-18 12:21] VITALS: BP 117/62
--- NOTE | 2023-04-18 16:03 | NUR ---
APPLIED CALAMINE LOTION TO BUTTOCK REGION
[2023-04-18 16:13] VITALS: BP 141/50
--- NOTE | 2023-04-18 16:46 | NUR ---
[employer] documentation: I have reviewed all interventions, assessments performed and documented by Betito CRISOSTOMO. [place] Medication Administration: For this medication-pass time frame, all medication were reviewed, dispensed, administered and documented per hospital policy by Betito CRISOSTOMO.
[2023-04-18 18:00] VITALS: BP 113/69
--- NOTE | 2023-04-18 18:38 | NUR ---
Problems reprioritized. Patient report given TO SUZANNE MEDICATION AID, questions answered & plan of care reviewed with .
[2023-04-18] MEDS: ciprofloxacin 250mg tablet PO SCH (20:37)
[2023-04-18] MEDS: temazepam 15mg capsule PO PRN (20:38)
[2023-04-18] MEDS: metroNIDAZOLE 500mg tablet PO SCH (20:38)
[2023-04-18] MEDS: zolpidem 5mg tablet PO PRN (20:38)
[2023-04-18] MEDS: insulin glargine (Lantus) pen - multi-dose SQ SCH (20:44)
[2023-04-18 22:00] VITALS: BP 108/62
[2023-04-19] MEDS: ziprasidone IM 20mg inj **IM only IM PRN (00:16)
[2023-04-19 02:00] VITALS: BP 118/70
--- NOTE | 2023-04-19 04:34 | NUR ---
AGREE WITH BIOFUELS PROCESSING TECHNICIAN ASSESSMENT
[2023-04-19] MEDS: ringers solution, lacted 1,000 ML IV SCH (05:29)
--- NOTE | 2023-04-19 06:15 | NUR ---
Patient in room PCU 3014. I have received report from Anna MARION and had the opportunity to ask questions and assume patient care.
[2023-04-19 06:16] LABS: BASOPHILS % (AUTO) 0.8 % (0-1); EOSINOPHILS # (AUTO) 0.2 X10'3 (0-0.9); EOSINOPHILS % (AUTO) 2.9 % (0-6); HEMATOCRIT 30.7 % (35.0-45.0); HEMOGLOBIN 10.1 g/dl (12.0-16.0); LYMPHOCYTES # (AUTO) 1.6 X10'3 (1.1-4.8); LYMPHOCYTES % (AUTO) 27.9 % (21-51); MEAN CORPUSCULAR HEMOGLOBIN 27.7 PG (27.0-31.0); MEAN CORPUSCULAR HGB CONC 32.9 g/dL (33.0-36.5); MEAN CORPUSCULAR VOLUME 84.4 FL (78-98); MEAN PLATELET VOLUME 8.7 FL (7.4-10.4); MONOCYTES # (AUTO) 0.4 X10'3 (0-0.9); NEUTROPHILS # (AUTO) 3.4 X10'3 (1.8-7.7); NEUTROPHILS % (AUTO) 60.4 % (42-75); PLATELET COUNT 227 X10'3 (140-440); RED BLOOD COUNT 3.64 X10'6 (4.20-5.60); RED CELL DISTRIBUTION WIDTH 14.8 % (11.5-14.5); WHITE BLOOD COUNT 5.6 X10'3 (4.5-11.0)
[2023-04-19 06:22] LABS: ALANINE AMINOTRANSFERASE 37 U/L (12-78); ALBUMIN 2.4 G/DL (3.4-5.0); ALBUMIN/GLOBULIN RATIO 0.6 (1.1-1.5); ALKALINE PHOSPHATASE 105 IU/L (46-116); ANION GAP 9 (8-16); ASPARTATE AMINO TRANSFERASE 25 U/L (10-37); BILIRUBIN,TOTAL 0.2 MG/DL (0.1-1.0); BLOOD UREA NITROGEN 25 MG/DL (7-18); BUN/CREATININE RATIO 26.3 (10.0-20.0); CHLORIDE 106 MMOL/L (99-107); CREATININE 0.95 MG/DL (0.40-0.90); GLUCOSE 118 MG/DL (70-104); MAGNESIUM 1.6 MG/DL (1.5-2.4); POTASSIUM 3.9 MMOL/L (3.5-5.1); SODIUM 141 MMOL/L (135-145); TOTAL CARBON DIOXIDE 25.9 MMOL/L (24-32); TOTAL PROTEIN 6.4 G/DL (6.4-8.2); eGFR 61 ML/MIN
[2023-04-19 06:30] VITALS: BP 144/67
[2023-04-19] MEDS: citalopram 20mg tablet PO SCH (07:58)
[2023-04-19] MEDS: metroNIDAZOLE 500mg tablet PO SCH (07:58)
[2023-04-19] MEDS: cloNIDine 0.1 mg tablet PO SCH (07:58)
[2023-04-19] MEDS: levoTHYROXINE 112mcg tablet PO SCH (07:58)
[2023-04-19] MEDS: heparin, porcine 5000 units/ml vial SQ SCH (07:59)
[2023-04-19] MEDS: K and/or MAG REPLACEMENT MC SCH (08:00)
--- NOTE | 2023-04-19 09:50 | NUR ---
The following was taken from the patients H&P: This 57 yr. old female came to the ER with uncontrolled diarrhea w/ABD cramping for a duration of the past week. She has a medical history of CVA, HTN, hypothyroidism, chronic pain, DM and anxiety/depression. She states that she quit using tobacco over a year ago. She states that she rarely use alcohol and endorses the use of marijuana and methamphetamines. She is currently homeless. CXR was negative for acute processes. ABD/pelvic CT was positive for fatty liver, small fat-containing umbilical hernia, compression deformities of the L1 and L5 vertebral bodies. Her most recent labs show a WBC of 5.6, HGB 10.1, BUN 25, BG 109 and an albumin of 2.4. Urinalysis is pending. Urine toxicology was positive for opiates and amphetamines. C-Diff toxin testing was negative. She was admitted for medical management of sepsis R/T gastroenteritis per progress notes. This patient was seen prior to discharge. Wound care in for evaluation of skin breakdown to the perineum per nursing consult request. The pt. was found sitting up in bed in no apparent acute distress. Greeted and explained the intent. She appears to be A/O x4, agreeable to care. The pt. states that she is no longer having loose stools. The gluteal sulcus and perineum, is with excoriated moist red skin consistent with MASD. The area was cleansed and Calazime cream applied. Education provided concerning the signs and symptoms of infection for a return of stated understanding. The pt. was able to reposition herself in bed. Bed left in the lowest position, call light/personal items in reach. Report was given to the primary nurse.
[2023-04-19] MEDS ORDERED: GLIP5TAB13 PO (10:34)
[2023-04-19] MEDS ORDERED: CIPR250T26 PO (10:34)
[2023-04-19] MEDS ORDERED: OXYB15TA19 PO (10:34)
[2023-04-19] MEDS ORDERED: METR-159 PO (10:34)
[2023-04-19] MEDS: ciprofloxacin 250mg tablet PO SCH (10:38)
--- NOTE | 2023-04-19 10:49 | NUR ---
Paged socially responsible investment adviser for discharge plan thank you.
--- NOTE | 2023-04-19 11:08 | NUR ---
AGREE WITH SENIOR ERP CONSULTANT AM ASSESSMENT.
--- NOTE | 2023-04-19 12:18 | NUR ---
Patient is stating she has a friend coming to get her and take her to a motel refusing to wait until SS sees her. CM notified.
--- NOTE | 2023-04-19 12:35 | NUR ---
Patient discharged home with all belongings and discharge instructions. IV removed. Escorted out via wheel chair and left via private vehicle with friend. Patient states she doesn't want her 12 step book she threw it away.
[2023-04-19] MEDS ORDERED: oxybutynin 5mg tablet PO SCH (13:00)
== END 2023-04-19 12:35 | disposition home or self-care (01) | DRG 720 ==
LOC: ER 09:55 → ED HOLD 15:30 → PCU 3S 16:48
PROVIDERS: ADMIT Family Medicine; ATTEND Family Medicine
DX: A41.9 Sepsis, unspecified organism (principal); E87.20 Acidosis, unspecified; N17.9 Acute kidney failure, unspecified; K76.0 Fatty (change of) liver, not elsewhere classified; E03.9 Hypothyroidism, unspecified; E78.00 Pure hypercholesterolemia, unspecified; E83.42 Hypomagnesemia; F32.A Depression, unspecified; E11.9 Type 2 diabetes mellitus without complications; F41.9 Anxiety disorder, unspecified; F15.10 Other stimulant abuse, uncomplicated; E86.0 Dehydration; G89.29 Other chronic pain; E66.01 Morbid (severe) obesity due to excess calories; M54.9 Dorsalgia, unspecified; I10 Essential (primary) hypertension; K52.9 Noninfective gastroenteritis and colitis, unspecified; R32 Unspecified urinary incontinence; Z56.0 Unemployment, unspecified; Z59.00 Homelessness unspecified; Z79.84 Long term (current) use of oral hypoglycemic drugs; Z79.899 Other long term (current) drug therapy; Z87.891 Personal history of nicotine dependence; Z90.710 Acquired absence of both cervix and uterus; Z88.5 Allergy status to narcotic agent; Z90.49 Acquired absence of other specified parts of digestive tract; Z79.82 Long term (current) use of aspirin; Z68.43 Body mass index [BMI] 50.0-59.9, adult; Z71.3 Dietary counseling and surveillance
CPT/HCPCS: 36415; 71045; 74176; 76770; 80053; 80305; 81001; 82570; 82948; 83036; 83605; 83735; 84145; 84156; 84300; 84443; 85025; 87040; 87081; 87088; 87207; 87324; 87449; 97116; 97161; 97530; 99285; A4314; A5200; A6250; A6258; G0378; J0744; J1170; J1644; J1815; J2270; J2405; J3475; J3486; J3490; J7030; J7120

== ENCOUNTER 2023-05-22 16:58 | Emergency (ER) | payer MEDICAID ==
[~2023-05-22] VITALS: Ht 162.6 cm; Wt 104.6 kg
[~2023-05-22 16:58] MED LIST changes: -ASPI-1264 PO; +ASPI81TA52 PO; -BREX2TAB PO; +BREX3TAB PO; +CIPR250T26 PO; -ENAL-79 PO; +GLIP5TAB13 PO; -HYDR25TA4 PO; -IBUP-1986 PO; -METF-900 PO; +METR-159 PO; +OXYB15TA19 PO
[2023-05-22 17:09] VITALS: BP 182/111; PULSE 92; RESP 17; TEMP 97.3; O2SAT 96
[2023-05-22] MEDS ORDERED: NYST30CR35 TP (18:14)
[2023-05-22] MEDS ORDERED: NAPR-56 PO (18:14)
[2023-05-22] MEDS ORDERED: CEPH-585 PO (18:14)
== END 2023-05-22 18:26 | disposition home or self-care (01) ==
LOC: ER 17:00
DX: S30.0XXA Contusion of lower back and pelvis, initial encounter (principal); S09.90XA Unspecified injury of head, initial encounter; L03.317 Cellulitis of buttock; I10 Essential (primary) hypertension; G89.29 Other chronic pain; Z90.49 Acquired absence of other specified parts of digestive tract; Z90.710 Acquired absence of both cervix and uterus; Z86.73 Personal history of transient ischemic attack (TIA), and cerebral infarction without residual deficits; Z56.0 Unemployment, unspecified; Z59.00 Homelessness unspecified; Z88.8 Allergy status to other drugs, medicaments and biological substances; Z79.82 Long term (current) use of aspirin; Z79.2 Long term (current) use of antibiotics; Z79.899 Other long term (current) drug therapy; W19.XXXA Unspecified fall, initial encounter; Y93.89 Activity, other specified; Y92.89 Other specified places as the place of occurrence of the external cause; Y99.8 Other external cause status
CPT/HCPCS: 99284